=== PATIENT | male | born 1980 | race African-American/Black ===

== ENCOUNTER 2019-01-25 17:30 | Emergency (ER) | payer MEDICAID ==
[~2019-01-25] VITALS: Ht 188 cm; Wt 70.0 kg
[2019-01-25] MEDS ORDERED: MORPHINE SULFATE 4 MG/ML CPJ (NOT FOR IM USE) IV STA (18:34)
[2019-01-25] MEDS ORDERED: ONDANSETRON HCL 4MG/2ML INJ IV STA (18:34)
[2019-01-25] MEDS ORDERED: SODIUM CHLORIDE 0.9% 1,000 ML IV ONE (18:34)
[2019-01-25 19:29] LABS: BASOPHILS % 0.7 % (0.0-2.0); EOSINOPHILS % 5.5 % (0.0-5.0); HEMOGLOBIN. 14.9 g/dL (14.0-18.0); LYMPHOCYTES % 29.5 % (20.0-50.0); MEAN CORPUSCULAR VOLUME 87.9 fL (80.0-94.0); MEAN PLATELET VOLUME 8.7 fl (7.4-10.4); MONOCYTES % 11.1 % (2.0-8.0); NEUTROPHILS % 53.2 % (40.0-76.0); PLATELET 251 x1000/uL (130-400); RED BLOOD CELL COUNT 5.12 mill/uL (4.7-6.1); RED CELL DISTRIBUTION WIDTH 12.5 % (11.6-14.6)
[2019-01-25 19:33] LABS: CHLORIDE 108 mEq/L (98-107)
[2019-01-25 19:34] LABS: PROTHROMBIN TIME 10.7 sec (9.6-11.0)
[2019-01-25 19:37] LABS: ETHANOL BLOOD < 10 mg/dL
[2019-01-25 22:28] LABS: CLARITY URINE CLEAR (CLEAR); COLOR URINE YELLOW (YELLOW); KETONES URINE NEGATIVE (NEGATIVE); LEUKOCYTE ESTERASE URINE NEGATIVE (NEGATIVE); NITRITE URINE NEGATIVE (NEGATIVE); OCCULT BLOOD URINE NEGATIVE (NEGATIVE); PROTEIN URINE NEGATIVE (NEGATIVE); SPECIFIC GRAVITY URINE 1.025 (1.005-1.030); UROBILINOGEN URINE 0.2 E.U./dL (0.2-1.0)
[2019-01-25 22:44] LABS: *AMPHETAMINES SCREEN URINE NEGATIVE (NEGATIVE); *BARBITURATES SCREEN URINE NEGATIVE (NEGATIVE); *BENZODIAZEPINES SCREEN URINE NEGATIVE (NEGATIVE); *COCAINE SCREEN URINE NEGATIVE (NEGATIVE); METHADONE URINE SCREEN NEGATIVE (NEGATIVE); OPIATES URINE SCREEN PRESUMTIVE POSITIVE (NEGATIVE)
[2019-01-25 22:45] LABS: CANNABINOID URINE SCREEN NEGATIVE (NEGATIVE); PHENCYCLIDINE URINE SCREEN NEGATIVE (NEGATIVE)
[2019-01-25] MEDS ORDERED: KETOROLAC 15MG/ML VIAL IV ONE (23:15)
[2019-01-25 23:30] VITALS: BP 109/64
== END 2019-01-26 00:27 | disposition left against medical advice (07) ==
LOC: ER 17:35
DX: R10.2 Pelvic and perineal pain (principal); R19.04 Left lower quadrant abdominal swelling, mass and lump; F17.210 Nicotine dependence, cigarettes, uncomplicated; Z71.6 Tobacco abuse counseling
CPT/HCPCS: 36415; 74176; 76870; 80053; 80305; 80320; 81003; 83690; 85025; 85610; 86592; 93976; 96374; 96375; 99284; J1885; J2270; J2405; J7030; Z7610; G0480

== ENCOUNTER 2019-01-27 19:58 | Emergency (ER) | payer MEDICAID ==
[~2019-01-27] VITALS: Ht 188 cm; Wt 77.0 kg
[2019-01-27 23:37] VITALS: BP 122/69
== END 2019-01-27 23:38 | disposition home or self-care (01) ==
LOC: ER 19:58
DX: N49.2 Inflammatory disorders of scrotum (principal); R59.0 Localized enlarged lymph nodes; F17.200 Nicotine dependence, unspecified, uncomplicated
CPT/HCPCS: 99283

== ENCOUNTER 2020-09-11 02:56 | Emergency (ER) | payer SELFPAY ==
[~2020-09-11] VITALS: Ht 188 cm; Wt 77.0 kg
[2020-09-11 03:20] VITALS: BP 127/80
[2020-09-11] MEDS ORDERED: ALBUTEROL (0.083%) 2.5MG/3ML NEB HHN STA (03:37)
[2020-09-11] MEDS ORDERED: ALBU6.7H9 INH (04:25)
== END 2020-09-11 05:18 | disposition home or self-care (01) ==
LOC: ER 02:56
DX: B34.9 Viral infection, unspecified (principal); R05 Cough
CPT/HCPCS: 71045; 94640; 99283; Z7610

== ENCOUNTER 2021-12-13 19:35 | Emergency (ER) | payer SELFPAY ==
[~2021-12-13] VITALS: Ht 188 cm; Wt 76.0 kg
[~2021-12-13 19:35] MED LIST: ALBU6.7H9 INH
[2021-12-13] MEDS ORDERED: IBUPROFEN 400MG TABLET PO ONE (21:15)
[2021-12-13] MEDS ORDERED: IBUP-2028 MT (21:45)
[2021-12-13 22:15] VITALS: BP 120/72
== END 2021-12-13 22:15 | disposition home or self-care (01) ==
LOC: ER 19:35
DX: S66.394A Other injury of extensor muscle, fascia and tendon of right ring finger at wrist and hand level, initial encounter (principal); W21.05XA Struck by basketball, initial encounter; Y93.67 Activity, basketball; Y92.89 Other specified places as the place of occurrence of the external cause; Y99.8 Other external cause status
CPT/HCPCS: 73130; 99283

== ENCOUNTER 2023-03-24 11:28 | Emergency (ER) | payer SELFPAY ==
[~2023-03-24] VITALS: Ht 182.9 cm; Wt 86.0 kg
[~2023-03-24 11:28] MED LIST changes: +ALBU6.7H3 INH; -ALBU6.7H9 INH; +IBUP-2028 MT
[2023-03-24 11:37] VITALS: O2SAT 99
[2023-03-24 11:45] VITALS: BP 117/64; PULSE 79; RESP 20; TEMP 98.5
[2023-03-24] MEDS ORDERED: NAPR-681 MT (15:52)
[2023-03-24] MEDS ORDERED: TOPUD PO (15:52)
== END 2023-03-24 18:24 | disposition home or self-care (01) ==
LOC: ER 11:28
DX: S86.011A Strain of right Achilles tendon, initial encounter (principal); X58.XXXA Exposure to other specified factors, initial encounter; Y93.89 Activity, other specified; Y92.89 Other specified places as the place of occurrence of the external cause; Y99.8 Other external cause status
CPT/HCPCS: 76881; 99284